=== PATIENT | female | born 1940 | race Caucasian/White ===

== ENCOUNTER 2023-11-26 04:03 | Emergency (ER) | payer MEDICARE, SELFPAY ==
[2023-11-26 04:07] VITALS: BP 205/95
[2023-11-26 04:14] VITALS: BP 205/95
[2023-11-26 04:23] VITALS: BMI 29.3
[2023-11-26 04:26] LABS: Glucose - Point of Care 122 mg/dl (70-99)
[2023-11-26 04:48] LABS: % Basophils 0.4 % (0-2); % Eosinophils 3.4 % (0-6); % Immature Granulocytes 0.5 % (0-0.5); % Lymphocytes 18.1 % (20.5-51.1); % Neutrophils 67.6 % (42.2-75.2); Absolute Basophils 0.1 10^3/uL (0-0.2); Absolute Eosinophils 0.4 10^3/uL (0-0.7); Absolute Immature Granulocytes 0.1 10^3/uL (0-0.05); Absolute Lymphocytes 2.1 10^3/uL (1.2-3.4); Absolute Monocytes 1.2 10^3/uL (0.1-0.6); Absolute Neutrophils 7.9 10^3/uL (1.4-6.5); Hematocrit 37.3 % (37.0-47.0); Hemoglobin 13.8 g/dL (12.0-16.0); Mean Corpuscular Hgb 33.5 pg (27.0-31.0); Mean Corpuscular Volume 90.5 fL (81.0-99.0); Mean Platelet Volume 12.1 fL (7.4-10.4); Nucleated Red Blood Cells % 0 %; Platelet Count 218 10^3/uL (130-400); Red Blood Cell Count 4.12 10^6/uL (4.20-5.40); Red Cell Dist. Width 12.9 % (11.5-14.5); White Blood Cell Count 11.6 10^3/uL (4.8-10.8)
[2023-11-26 05:10] LABS: ALT (SGPT) 24 U/L (0-35); AST (SGOT) 42 U/L (14-36); Albumin 3.8 g/dl (3.5-5.0); Alkaline Phosphatase 111 U/L (38-126); Blood Urea Nitrogen 8 mg/dl (7-17); Calcium 9.5 mg/dl (8.4-10.2); Carbon Dioxide 26 mmol/L (22-30); Chloride 100 mmol/L (98-107); Estimated Creatinine Clearance 73 ml/min; Glucose 126 mg/dl (70-99); Sodium 138 mmol/L (135-145); Total Protein 6.7 g/dl (6.3-8.2); eGFR > 60.00
[2023-11-26 05:13] LABS: NT-proBNP 683 pg/ml; Troponin I < 0.012 ng/ml
[2023-11-26 05:20] LABS: Creatine Phosphokinase 75 U/L (30-135)
[2023-11-26 06:00] VITALS: BP 203/74
--- NOTE | 2023-11-26 06:18 | ED.GENMED ---
History of Present Illness
General
Chief Complaint: Fall
Source: patient and spouse
Time Seen by Provider: 11/26/23 06:01
Travel History
Have you had any contact with someone who has COVID-19?: No
Do you have any symptoms of coronavirus? Fever > 100 degrees, chills, cough, shortness of breath, sore throat, loss of taste or smell, muscle aches, or headache?: No
History of Present Illness
History of Present Illness:
83-year-old female presents to the emergency room for evaluation after suffering a fall. Patient evidently fell at about 1:30 AM. Patient's did hear her fall but assumed she would get herself up. This morning when he awoke he found her on
the ground. Patient complaining of abdominal pain and right thorax pain. She does not have any shortness of breath. Patient endorses drinking about 8 ounces of liquor a day. She is on Eliquis.
Past History
Past History
ED Past Medical History: Arrthythmia, HTN, Hypercholesterolemia and Psychiatric (depression)
ED Past Surgical History: Cholecystectomy, Gynecological (hyster) and Other
Social History
Tobacco: Smoker
Alcohol: Daily
Drug: None
Personal:
Living: with family
Employment: Retired
Family History
Family History: Other
Phy Exam
Physical Exam
Physical Exam:
General: Awake, Alert, Oriented X3. Uncomfortable
Vitals: Hypertensive
Head: Atraumatic
Eyes: Pupils equal, EOMI
Throat: Airway intact, no exudates
Neck: Trachea midline
Chest: Significant tenderness palpation along the right lateral thorax from around the region of the fifth rib down to the 10th rib. No crepitance
Lungs: Clear and equal b/l
Heart: Regular rate, no murmurs
Abd: Soft, significant tenderness palpation bilateral upper abdominal quadrants, no pulsatile mass
Neuro: Nonfocal
Skin: Warm, dry, no rash
Extremities: pulses equal b/l, no edema
Course
Orders/Labs/Results
Orders:
Orders
11/26/23 04:31
Electrocardiogram (*1) Urgent
Reason for Study: Other
Other Reason for Exam: Respiratory Distress
Cardiac Monitoring- Treatment ONCE
EKG- Treatment ONCE
IV Insert/Care/Rem.- Treatment PRN
O2 Therapy [RESP] Urgent
Titrate/Wean O2 to maintain O2 sat greater than (%): 93
Special Instructions: TO MAINTAIN CONTINUOUS O2 SATS >/= 93%
Pulse Ox/cont/shift [RESP] Urgent
Quantity: 1
Special Instructions: continuous pulse ox
11/26/23 04:35
Complete Blood Count/With Diff Urgent
Comprehensive Metabolic Panel Urgent
Creatine Phosphokinase Urgent
Comment: ADD ON
NT-proBNP Urgent
Troponin I Urgent
11/26/23 04:53
Add On- LAB Urgent
Tests Added?: CPK
11/26/23 06:11
Urinalysis Urgent
Date Specimen was Collected: 11/26/23
Time Specimen was Collected: 05:26
Urine Microscopic Urgent
Date Specimen was Collected: 11/26/23
Time Specimen was Collected: 05:26
11/26/23 06:15
CT Chest/abd/pel W Iv Cont Urgent
Comment:
Reason For Exam: fall, right thorax and upper abd pain
CT Head W/o Iv Contrast Urgent
Comment:
Reason For Exam: fall, head injury
HYDROmorphone [Dilaudid] 0.5 mg IV NOW STA
11/26/23 06:16
CT Cervical Spine W/o Iv Contr Urgent
Comment:
Reason For Exam: neck pain s/p fall
11/26/23 11:17
Acetaminophen 1000MG/100Ml [Ofirmev] 1,000 mg in 100 ml IV ONCE
Acetaminophen IV Indication:: ED Narcotic History-ONCE
Abnormal Lab Results
11/26/23 11/26/23 11/26/23
04: 04:35 06:11
WBC 11.6 H 10^3/uL
(4.8-10.8)
RBC 4.12 L 10^6/uL
(4.20-5.40)
MCH 33.5 H pg
(27.0-31.0)
MPV 12.1 H fL
(7.4-10.4)
Abs Immat Gran (auto) 0.1 H 10^3/uL
(0-0.05)
Absolute Neuts (auto) 7.9 H 10^3/uL
(1.4-6.5)
Absolute Monos (auto) 1.2 H 10^3/uL
(0.1-0.6)
Lymphocytes % 18.1 L %
(20.5-51.1)
Monocytes % 10.0 H %
(1.7-9.3)
Creatinine 0.5 L mg/dL
(0.6-1.0)
Glucose 126 H mg/dl
(70-99)
AST 42 H U/L
(14-36)
Urine Occult Blood 1+ A
(Negative)
Ur Leukocyte Esterase 2+ A
(Negative)
Urine Bacteria Few A
(Negative)
POC Glucose 122 H mg/dl
(70-99)
11/26/23 04:35
11/26/23 04:35
Vital Signs
Initial and Last Documented VS:
Initial Vital Signs
Temp Pulse Resp BP Pulse Ox
98.0 F 64 15 205/95 94
11/26/23 04:07 11/26/23 04:07 11/26/23 04:07 11/26/23 04:07 11/26/23 04:07
Last Documented Vital Signs
Temp Pulse Resp BP Pulse Ox
98.0 F 61 21 180/80 96
11/26/23 04:07 11/26/23 09:00 11/26/23 09:00 11/26/23 11:28 11/26/23 11:28
MDM/Problems Addressed
Differential Diagnosis Includes:
Fractures, pneumothorax, hemothorax, splenic injury, hepatic injury
MDM/Problems Addressed:
CT shows multiple rib fxs on the right. No intra-abdominal injury. CT head/neck --> No acute injury. Given number of rib fx's pt is not a candidate for admission here. Discussed transfer to a trauma center with pt and her . They are okay
with [facility]. pt accepted by Dr. Simmons.
Chronic conditions affecting care: Arrhythmia (a fib) and Other (etoh)
*Radiology
Radiology exam reviewed: radiology read reviewed
*Pulse Oximetry
Patient hypoxic: no
*EKG
Interpreted by ED Provider?: Yes
Interpretation: normal
Heart Rate: 62
Rate: normal
Rhythm: sinus
[place]: normal axis
Interval: normal interval
QRS Pattern: normal QRS
Ischemia: no ischemia
*Critical Care Note
Total Time (30-74mins, 75-104mins- exclusive of procedures): Not Applicable
Patient Management
Social determinants of health affecting care: Living situation and Substance abuse
ED Attending Note
-
Portions of this chart may have been created with voice recognition software.� Occasional wrong word or��sound alike� substitutions may have occurred due to the inherent limitations of voice recognition software.
Discharge Plan
Departure
Patient Disposition: Acute Care Hospital
Date of Disposition: 11/26/23
Time of Disposition: 09:31
Condition: Fair
Discharge Problem:
Multiple fractures of ribs, Fall
Prescriptions:
No Action
atorvastatin 10 MG tablet
10 mg PO DAILY
duloxetine 30 MG capsule,delayed release(DR/EC)
30 mg PO DAILY
Rx Instructions:
11/26/2023, take with 60 mg for a total of 90 mg.
metoprolol succinate 100 MG tablet extended release 24 hr
100 mg PO DAILY
cyanocobalamin (vitamin B-12) 1,000 MCG tablet
1,000 mcg PO DAILY
Eliquis 5 MG tablet
5 mg PO BID
acetaminophen [Tylenol Extra Strength] 500 mg Tablet
2,000 mg PO DAILYPRN PRN (Reason: mild pain)
valsartan 160 mg Tablet
160 mg PO BID
duloxetine 60 mg Capsule,Delayed Release(Dr/Ec)
60 mg PO DAILY
Rx Instructions:
11/26/2023, take with 30 mg for a total of 90 mg.
Referrals:
Lamont El MD [Family Provider] -
Hospital Transfer
Other hospital: [facility]
I certify that the patient requires transfer: Yes
Discussed case with accepting physician: Dr. Simmons
Reason for transfer: higher level of care
Interventions
Interventions:
*Risk Screen - Suicide Last Done: 11/26/23 04:07
*General Assessment Last Done: 11/26/23 04:07
*Neglect/Abuse Screening Last Done: 11/26/23 04:07
ED- Fall Risk Assessment Last Done: 11/26/23 04:07
*ED COVID-19 Vaccine History Last Done: 11/26/23 04:07
*Nursing Disposition Last Done: 11/26/23 11:28
ED-Musculoskeletal Assessment Last Done: 11/26/23 04:23
ED- Neurological Assessment Last Done: 11/26/23 04:23
ED-Skin Assessment Last Done: 11/26/23 04:23
Discharge Date and Time
Discharge Date/Time: 11/26/23 11:32
[2023-11-26 06:23] LABS: Urine Albumin Negative (Neg - Trace); Urine Bilirubin Negative (Negative); Urine Character Clear (Clear); Urine Color Yellow; Urine Glucose Negative (Negative); Urine Ketone Negative (Negative); Urine Leukocyte 2+ (Negative); Urine Nitrite Negative (Negative); Urine Occult Blood 1+ (Negative); Urine Urobilinogen Negative (Neg - 1+)
[2023-11-26] MEDS: DILAUDID 0.5 MG IV (06:23)
[2023-11-26 06:41] VITALS: BP 178/71
[2023-11-26 07:15] LABS: Urine Squamous Cell 16-20 /LPF (Few)
[2023-11-26 07:17] LABS: Urine Red Blood Cell 0-2 /HPF (0-2)
[2023-11-26 07:18] LABS: Urine Bacteria Few (Negative)
[2023-11-26 08:27] VITALS: BP 176/78
[2023-11-26] MEDS: OFIRMEV 100 IV (11:19)
[2023-11-26 11:28] VITALS: BP 180/80
== END 2023-11-26 11:32 | disposition short-term general hospital (02) ==
LOC: EMR 04:03
PROVIDERS: Emergency Medicine; EMERGENCY PHYSICIAN Emergency Medicine; FAMILY PHYSICIAN Internal Medicine Geriatric Medicine
DX: S22.41XA Multiple fractures of ribs, right side, initial encounter for closed fracture (principal); W19.XXXA Unspecified fall, initial encounter; I10 Essential (primary) hypertension; I48.91 Unspecified atrial fibrillation; F32.A Depression, unspecified; E78.00 Pure hypercholesterolemia, unspecified; F17.200 Nicotine dependence, unspecified, uncomplicated; Z90.49 Acquired absence of other specified parts of digestive tract; Z79.01 Long term (current) use of anticoagulants
CPT/HCPCS: 99285; 96374; 96375; 70450; 71260; 72125; 74177; 80053; 81003; 81015; 82550; 82962; 83880; 84484; 85025; 93005; Q9967

== ENCOUNTER → 2023-12-31 16:53 | Outpatient (REF) | payer MEDICARE, SELFPAY | LOC: PAVMRI 16:53 | PROVIDERS: ATTENDING PHYSICIAN Internal Medicine Geriatric Medicine | DX: R42 Dizziness and giddiness (principal); Z09 Encounter for follow-up examination after completed treatment for conditions other than malignant neoplasm; R41.0 Disorientation, unspecified; G45.9 Transient cerebral ischemic attack, unspecified; I48.0 Paroxysmal atrial fibrillation | CPT/HCPCS: 70551 ==

== ENCOUNTER → 2024-01-03 09:14 | Outpatient (REF) | payer MEDICARE, SELFPAY ==
[2024-01-03 10:20] LABS: % Basophils 0.6 % (0-2); % Eosinophils 5.5 % (0-6); % Immature Granulocytes 0.4 % (0-0.5); % Lymphocytes 19.7 % (20.5-51.1); % Monocytes 10.3 % (1.7-9.3); % Neutrophils 63.5 % (42.2-75.2); Absolute Basophils 0.1 10^3/uL (0-0.2); Absolute Eosinophils 0.5 10^3/uL (0-0.7); Absolute Lymphocytes 1.9 10^3/uL (1.2-3.4); Absolute Neutrophils 6.2 10^3/uL (1.4-6.5); Hemoglobin 13.3 g/dL (12.0-16.0); Mean Corp Hgb Conc. 35.9 g/dL (33.0-37.0); Mean Corpuscular Volume 94.6 fL (81.0-99.0); Mean Platelet Volume 11.3 fL (7.4-10.4); Nucleated Red Blood Cells % 0 %; Platelet Count 190 10^3/uL (130-400); Red Blood Cell Count 3.91 10^6/uL (4.20-5.40); Red Cell Dist. Width 12.6 % (11.5-14.5); White Blood Cell Count 9.8 10^3/uL (4.8-10.8)
[2024-01-03 10:29] LABS: Urine Albumin Trace (Neg - Trace); Urine Bilirubin 1+ (Negative); Urine Character Very Cloudy (Clear); Urine Color Yellow; Urine Glucose Negative (Negative); Urine Ketone Trace (Negative); Urine Leukocyte 2+ (Negative); Urine Nitrite Negative (Negative); Urine Occult Blood 4+ (Negative); Urine Urobilinogen 1+ (Neg - 1+)
[2024-01-03 11:05] LABS: Vitamin D, 25-OH*** 21.7 ng/mL (30-80)
[2024-01-03 11:26] LABS: Urine Amorphous Seen; Urine Mucus Moderate; Urine Squamous Cell >30 /LPF (Few)
[2024-01-03 11:29] LABS: ALT (SGPT) 14 U/L (0-35); AST (SGOT) 20 U/L (14-36); Albumin 3.9 g/dl (3.5-5.0); Alkaline Phosphatase 126 U/L (38-126); Blood Urea Nitrogen 7 mg/dl (7-17); Calcium 9.9 mg/dl (8.4-10.2); Carbon Dioxide 30 mmol/L (22-30); Chloride 99 mmol/L (98-107); Glucose 114 mg/dl (70-99); HDL Cholesterol 83 mg/dl; LDL Cholesterol, Calculated 45 mg/dl; Potassium 4.1 mmol/L (3.5-5.1); Sodium 137 mmol/L (135-145); Total Bilirubin 1.3 mg/dl (0.2-1.3); Total Cholesterol 156 mg/dl (50-199); Total Protein 6.6 g/dl (6.3-8.2); Triglyceride 141 mg/dl (10-149); Urine Red Blood Cell 26-30 /HPF (0-2); Very Low Density Lipoprotein 28 mg/dl (0-30); eGFR > 60.00
[2024-01-03 11:30] LABS: Urine Bacteria Many (Negative); Urine White Cell 50-60 /HPF (0-5)
[2024-01-03 11:55] LABS: Folate 5.6 ng/ml (2.76-20); Vitamin B12 739 pg/ml (239-931)
[2024-01-06 14:15] LABS: Lyme Antibody Screen, EIA Negative (Negative)
== END ==
LOC: REG 09:14
PROVIDERS: ATTENDING PHYSICIAN Internal Medicine Geriatric Medicine
DX: Z09 Encounter for follow-up examination after completed treatment for conditions other than malignant neoplasm (principal); R41.0 Disorientation, unspecified; G45.9 Transient cerebral ischemic attack, unspecified; I48.0 Paroxysmal atrial fibrillation; I10 Essential (primary) hypertension; E78.2 Mixed hyperlipidemia; D47.2 Monoclonal gammopathy; G62.9 Polyneuropathy, unspecified; Z99.89 Dependence on other enabling machines and devices; N39.41 Urge incontinence; Z91.81 History of falling; D47.09 Other mast cell neoplasms of uncertain behavior
CPT/HCPCS: 36415; 80053; 80061; 81003; 81015; 82306; 82607; 82746; 85025; 86618

== ENCOUNTER → 2024-05-13 14:46 | Outpatient (REF) | payer MEDICARE, SELFPAY | LOC: RAD 14:46 | PROVIDERS: ATTENDING PHYSICIAN Nurse Practitioner Family; FAMILY PHYSICIAN Internal Medicine Geriatric Medicine | DX: M54.50 Low back pain, unspecified (principal) | CPT/HCPCS: 72110 ==

== ENCOUNTER 2024-07-05 10:46 | Emergency (ER) | payer MEDICARE, SELFPAY ==
[2024-07-05 10:53] VITALS: BP 201/87
--- NOTE | 2024-07-05 11:21 | ED.GENMED ---
History of Present Illness
General
Chief Complaint: Musculo-Skeletal Complaint
Time Seen by Provider: 07/05/24 11:09
History of Present Illness
History of Present Illness:
83-year-old female presents to the emergency department after mechanical ground-level fall, states that she was walking with her walker, ran into a piece of furniture and lost her balance, falling onto an outstretched hand. Pain is to the right
wrist and hand. Denies a head strike.
Past History
Past History
ED Past Medical History: Arrthythmia, HTN, Hypercholesterolemia and Psychiatric (depression)
ED Past Surgical History: Cholecystectomy, Gynecological (hyster) and Other
Social History
Tobacco: Smoker
Alcohol: Daily
Drug: None
Personal:
Living: with family
Employment: Retired
Family History
Family History: Other
Review of Systems
Review of Systems
Allergies reviewed?: Yes
All Other Systems: ROS reviewed and negative except as documented in HPI and ROS
Phy Exam
Physical Exam
Physical Exam:
GEN: Well appearing, NAD, WDWN
HEENT: Normocephalic and atraumatic, oral mucosa moist, no scleral icterus
Cardiac: Regular rate
Lung: No respiratory distress, no tachypnea
MSK: Diffuse ecchymosis and swelling to the right distal forearm/wrist extending into the mid hand, neurovascularly intact distal to the injury
Skin: Good color, no pallor or jaundice, no rashes
Neuro: AO x3, moves all extremities freely
Psych: Calm, cooperative
Course
Orders/Labs/Results
Orders:
Orders
07/05/24 10:55
CR Hand - Right Min 3 Views Urgent
Comment:
Reason For Exam: pain, bruising
Wrist, Right 3 Views [CR Wrist - Right Min 3 Views] Urgent
Comment:
Reason For Exam: pain, bruising
07/05/24 11:21
Acetaminophen [Tylenol] 650 mg PO NOW STA
Oxycodone [Roxicodone] 5 mg PO NOW STA
Vital Signs
Initial and Last Documented VS:
Initial Vital Signs
Temp Pulse Resp BP Pulse Ox
97.6 F 59 20 201/87 95
07/05/24 10:53 07/05/24 10:53 07/05/24 10:53 07/05/24 10:53 07/05/24 10:53
Last Documented Vital Signs
Temp Pulse Resp BP Pulse Ox
97.6 F 59 20 201/87 95
07/05/24 10:53 07/05/24 10:53 07/05/24 10:53 07/05/24 10:53 07/05/24 10:53
MDM/Problems Addressed
MDM/Problems Addressed:
Patient placed in an Ortho-Glass sugar-tong splint, outpatient orthopedic follow-up advised. No indication for close reduction in the ER
*Critical Care Note
Total Time (30-74mins, 75-104mins- exclusive of procedures): Not Applicable
ED Attending Note
-
Portions of this chart may have been created with voice recognition software.� Occasional wrong word or��sound alike� substitutions may have occurred due to the inherent limitations of voice recognition software.
Discharge Plan
Departure
Patient Disposition: Home (Routine Discharge)
Date of Disposition: 07/05/24
Time of Disposition: 11:21
Patient with high blood pressure during this ER visit?: No
Discharge Problem:
Closed fracture of right distal radius
Instructions: Wrist Fracture (DC)
Prescriptions:
New
oxycodone 5 mg tablet
5 mg PO Q8H PRN (Reason: Pain) Qty: 10 0RF
No Action
atorvastatin 10 MG tablet
10 mg PO DAILY
duloxetine 30 MG capsule,delayed release(DR/EC)
30 mg PO DAILY
Rx Instructions:
11/26/2023, take with 60 mg for a total of 90 mg.
metoprolol succinate 100 MG tablet extended release 24 hr
100 mg PO DAILY
cyanocobalamin (vitamin B-12) 1,000 MCG tablet
1,000 mcg PO DAILY
Eliquis 5 MG tablet
5 mg PO BID
acetaminophen [Tylenol Extra Strength] 500 mg Tablet
2,000 mg PO DAILYPRN PRN (Reason: mild pain)
valsartan 160 mg Tablet
160 mg PO BID
duloxetine 60 mg Capsule,Delayed Release(Dr/Ec)
60 mg PO DAILY
Rx Instructions:
11/26/2023, take with 30 mg for a total of 90 mg.
Referrals:
Gume Reeder MD [Active] -
Interventions
Interventions:
*Risk Screen - Suicide Last Done: 07/05/24 11:36
*General Assessment Last Done: 07/05/24 11:36
*Neglect/Abuse Screening Last Done: 07/05/24 11:36
ED- Fall Risk Assessment Last Done: 07/05/24 11:36
*Nursing Disposition Last Done: 07/05/24 11:54
ED-Musculoskeletal Assessment Last Done: 07/05/24 11:36
Discharge Date and Time
Discharge Date/Time: 07/05/24 11:58
Print Language: MACANESE
[2024-07-05] MEDS: TYLENOL 650 MG PO (11:31)
[2024-07-05] MEDS: ROXICODONE 5 MG PO (11:31)
== END 2024-07-05 11:58 | disposition home or self-care (01) ==
LOC: EMR 10:46
PROVIDERS: EMERGENCY PHYSICIAN Student in an Organized Health Care Education/Training Program; FAMILY PHYSICIAN Internal Medicine Geriatric Medicine
DX: S52.501A Unspecified fracture of the lower end of right radius, initial encounter for closed fracture (principal); W18.39XA Other fall on same level, initial encounter; E78.00 Pure hypercholesterolemia, unspecified; I10 Essential (primary) hypertension; F17.200 Nicotine dependence, unspecified, uncomplicated
CPT/HCPCS: 29125; 99283; 73110; 73130

== ENCOUNTER → 2024-09-21 10:30 | Outpatient (REF) | payer MEDICARE, SELFPAY ==
[2024-09-21 11:58] LABS: % Basophils 0.8 % (0-2); % Eosinophils 11.5 % (0-6); % Immature Granulocytes 0.3 % (0-0.5); % Lymphocytes 30.2 % (20.5-51.1); % Monocytes 9.3 % (1.7-9.3); % Neutrophils 47.9 % (42.2-75.2); Absolute Basophils 0.1 10^3/uL (0-0.2); Absolute Eosinophils 0.9 10^3/uL (0-0.7); Absolute Lymphocytes 2.3 10^3/uL (1.2-3.4); Absolute Monocytes 0.7 10^3/uL (0.1-0.6); Absolute Neutrophils 3.7 10^3/uL (1.4-6.5); Hematocrit 40.4 % (37.0-47.0); Hemoglobin 13.8 g/dL (12.0-16.0); Mean Corp Hgb Conc. 34.2 g/dL (33.0-37.0); Mean Corpuscular Hgb 32.5 pg (27.0-31.0); Mean Corpuscular Volume 95.1 fL (81.0-99.0); Mean Platelet Volume 12.1 fL (7.4-10.4); Nucleated Red Blood Cells % 0 %; Platelet Count 187 10^3/uL (130-400); Red Blood Cell Count 4.25 10^6/uL (4.20-5.40); Red Cell Dist. Width 12.6 % (11.5-14.5); White Blood Cell Count 7.7 10^3/uL (4.8-10.8)
[2024-09-21 12:02] LABS: Urine Albumin Trace (Neg - Trace); Urine Bilirubin 1+ (Negative); Urine Character Slightly Cloudy (Clear); Urine Color Yellow; Urine Glucose Negative (Negative); Urine Ketone Negative (Negative); Urine Leukocyte 2+ (Negative); Urine Nitrite Negative (Negative); Urine Occult Blood 4+ (Negative); Urine Specific Gravity 1.025 (<1.030); Urine Urobilinogen 2+ (Neg - 1+)
[2024-09-21 12:28] LABS: ALT (SGPT) 19 U/L (0-35); AST (SGOT) 23 U/L (14-36); Albumin 4.3 g/dl (3.5-5.0); Alkaline Phosphatase 100 U/L (38-126); Blood Urea Nitrogen 13 mg/dl (7-17); Calcium 9.7 mg/dl (8.4-10.2); Carbon Dioxide 31 mmol/L (22-30); Chloride 101 mmol/L (98-107); Glucose 108 mg/dl (70-99); HDL Cholesterol 87 mg/dl; LDL Cholesterol, Calculated 68 mg/dl; Potassium 3.9 mmol/L (3.5-5.1); Sodium 142 mmol/L (135-145); Total Cholesterol 184 mg/dl (50-199); Triglyceride 149 mg/dl (10-149); Very Low Density Lipoprotein 29 mg/dl (0-30); eGFR > 60.00
[2024-09-21 12:38] LABS: Vitamin D, 25-OH*** 26.1 ng/mL (30-80)
[2024-09-21 12:58] LABS: Urine Squamous Cell >30 /LPF (Few)
[2024-09-21 13:00] LABS: Urine Amorphous Seen; Urine Calcium Oxalate Crystals Seen; Urine White Cell 16-20 /HPF (0-5)
[2024-09-21 13:01] LABS: Urine Bacteria Many (Negative)
== END ==
LOC: REG 10:30
PROVIDERS: ATTENDING PHYSICIAN Internal Medicine Geriatric Medicine
DX: E78.2 Mixed hyperlipidemia (principal); I10 Essential (primary) hypertension; I48.0 Paroxysmal atrial fibrillation; R41.0 Disorientation, unspecified; G45.9 Transient cerebral ischemic attack, unspecified; D47.2 Monoclonal gammopathy; G62.9 Polyneuropathy, unspecified
CPT/HCPCS: 36415; 80053; 80061; 81003; 81015; 82306; 85025

== ENCOUNTER 2024-09-30 20:17 | Observation (INO) | payer MEDICARE, SELFPAY ==
[2024-09-30 17:15] VITALS: BP 136/71
--- NOTE | 2024-09-30 17:25 | ED.CVA ---
ED Provider Triage
<Gomez Hernandez PA-C - Last Filed: 09/30/24 17:26>
-
Patient seen by provider in Triage?: Seen in Triage
84-year-old female on Eliquis for history of A-fib presents with difficulty finding words and trouble speaking starting about an hour prior to arrival. She denies headache chest pain or shortness of breath. She does have a history of a stroke in
the past. During triage she does have trouble finding words and is at times aphasic but no obvious unilateral deficit otherwise the face is she is ambulating with a walker.
Patient evaluated vital signs obtained at triage called a stroke alert secondary to the aphasia. Likely not a tPA candidate secondary to anticoagulated status. Notified emergency room attending
Patient received medical screening evaluation by healthcare provider through triage. She warrants further workup and treatment
History of Present Illness
<Gomez Hernandez PA-C - Last Filed: 09/30/24 17:26>
General
Chief Complaint: CVA/TIA Symptoms
Time Seen by Provider: 09/30/24 17:35
<Brent Rawls DO - Last Filed: 09/30/24 20:57>
General
Source: patient, spouse and family
Onset of Stroke Symptoms
Onset of symptoms known: Yes
Date of onset of symptoms: 09/30/24
Time of onset of symptoms: 16:30
History of Present Illness
History of Present Illness:
84-year-old female presents to the emergency room for evaluation of abnormal speech. Patient noted to have a onset of abnormal speech around 430. Prior to 430 patient was observed by her daughter at her baseline. Daughter went upstairs to perform
some task and a short time later came back down to find her mom sitting in a chair with difficulty speaking. She did not observe any focal upper extremity or lower extremity weakness. Patient did have a CVA in the past. Symptoms were aphasia.
Aphasia resolved. Patient does take Eliquis. She has been compliant with her Eliquis.
Past History
<Gomez Hernandez PA-C - Last Filed: 09/30/24 17:26>
Past History
ED Past Medical History: Arrthythmia, HTN, Hypercholesterolemia and Psychiatric (depression)
ED Past Surgical History: Cholecystectomy, Gynecological (hyster) and Other
Social History
Tobacco: Smoker
Alcohol: Daily
Drug: None
Personal:
Living: with family
Employment: Retired
Family History
Family History: Other
Phy Exam
<Brent Rawls DO - Last Filed: 09/30/24 20:57>
Physical Exam
Physical Exam:
General: Eyes closed but opens with voice. Does follow commands to a significant extent. Oriented to person and place.
Vitals: unremarkable
Head: Atraumatic
Eyes: Pupils equal, EOMI
Throat: Airway intact, no exudates
Neck: Trachea midline
Lungs: Clear and equal b/l
Heart: Regular rate, no murmurs
Abd: Soft, Nontender, No pulsatile mass
Neuro: Cranial nerves intact, slight leg drift on the left, cerebellum exam difficult to assess as the patient closes her eyes during the examination.
Skin: Warm, dry, no rash
Extremities: pulses equal b/l, no edema
Course
<Gomez Hernandez PA-C - Last Filed: 09/30/24 17:26>
Orders/Labs/Results
Orders:
Orders
09/30/24 17:22
CT HEAD STROKE ALERT W/o Cont Urgent
Comment:
Reason For Exam: aphasia
CT HEAD/NECK ANG STROKE ALERT Urgent
Comment:
Reason For Exam: aphasia
09/30/24 17:23
Electrocardiogram (*1) Urgent
Reason for Study: TIA/Stroke
EKG- Treatment ONCE
09/30/24 17:30
Complete Blood Count/With Diff Urgent
09/30/24 17:36
Urinalysis Reflex To Culture Urgent
09/30/24 17:40
Add On- LAB Urgent
Tests Added?: alcohol
09/30/24 18:38
Alcohol Urgent
Comprehensive Metabolic Panel Urgent
09/30/24 19:57
Admit/Transfer Patient As Directed
Co-Sign Provider:
Level of Care: Observation services
Assign to:: Telemetry
Physician / Group: cheryl
Diagnosis: cva
Reason for Telemetry: Arrhythmia
Date to Stop Telemetry: 10/03/24
Time to Stop Telemetry: 11:00
PRN Pain Medication Management As Directed
May give lesser potent ordered pain med per pt: Yes
preference::
Protocol:: Medication orders for pain may be administered in a
manner that supports deferring to patient preference
when the pt is:
- Requesting an ordered lesser potent pain medication.
Least to most potent pain medications are defined
as: acetaminophen < NSAID < tramadol < opioids
(morphine, oxycodone, hydromorphone).
- Requesting a lesser dose of the same medication IF
ORDERED.
- Requesting a less intrusive route of administration
if both routes are prescribed by the provider (PO <
IV).
09/30/24 19:58
Code Status As Directed
Resuscitation Status: Do not resuscitate
Reached after discussion with pt or family/Healthcare POA: Yes
DNR Bracelet Application ONCE
10/03/24 11:00
DC Protocol for Telemetry ONCE
Abnormal Lab Results
09/30/24 09/30/24 09/30/24
17:29 17:30 18:38
MCH 32.9 H pg
(27.0-31.0)
MPV 12.1 H fL
(7.4-10.4)
Absolute Monos (auto) 0.9 H 10^3/uL
(0.1-0.6)
Monocytes % 10.2 H %
(1.7-9.3)
Eosinophils % 6.9 H %
(0-6)
Carbon Dioxide 32 H mmol/L
(22-30)
Total Protein 6.1 L g/dl
(6.3-8.2)
POC Glucose 137 H mg/dl
(70-99)
09/30/24 17:30
09/30/24 18:38
Vital Signs
Initial and Last Documented VS:
Initial Vital Signs
Temp Pulse Resp BP Pulse Ox
97.8 F 67 16 136/71 95
09/30/24 17:15 09/30/24 17:15 09/30/24 17:15 09/30/24 17:15 09/30/24 17:15
Last Documented Vital Signs
Temp Pulse Resp BP Pulse Ox
97.8 F 63 16 138/58 87
09/30/24 17:15 09/30/24 20:00 09/30/24 17:15 09/30/24 19:00 09/30/24 18:45
Yaslt;Brent Rawls DO - Last Filed: 09/30/24 20:57>
Orders/Labs/Results
Orders:
Orders
09/30/24 17:22
CT HEAD STROKE ALERT W/o Cont Urgent
Comment:
Reason For Exam: aphasia
CT HEAD/NECK ANG STROKE ALERT Urgent
Comment:
Reason For Exam: aphasia
09/30/24 17:23
Electrocardiogram (*1) Urgent
Reason for Study: TIA/Stroke
EKG- Treatment ONCE
09/30/24 17:30
Complete Blood Count/With Diff Urgent
09/30/24 17:36
Urinalysis Reflex To Culture Urgent
09/30/24 17:40
Add On- LAB Urgent
Tests Added?: alcohol
09/30/24 18:38
Alcohol Urgent
Comprehensive Metabolic Panel Urgent
09/30/24 19:57
Admit/Transfer Patient As Directed
Co-Sign Provider:
Level of Care: Observation services
Assign to:: Telemetry
Physician / Group: cheryl
Diagnosis: cva
Reason for Telemetry: Arrhythmia
Date to Stop Telemetry: 10/03/24
Time to Stop Telemetry: 11:00
PRN Pain Medication Management As Directed
May give lesser potent ordered pain med per pt: Yes
preference::
Protocol:: Medication orders for pain may be administered in a
manner that supports deferring to patient preference
when the pt is:
- Requesting an ordered lesser potent pain medication.
Least to most potent pain medications are defined
as: acetaminophen < NSAID < tramadol < opioids
(morphine, oxycodone, hydromorphone).
- Requesting a lesser dose of the same medication IF
ORDERED.
- Requesting a less intrusive route of administration
if both routes are prescribed by the provider (PO <
IV).
09/30/24 19:58
Code Status As Directed
Resuscitation Status: Do not resuscitate
Reached after discussion with pt or family/Healthcare POA: Yes
DNR Bracelet Application ONCE
10/03/24 11:00
DC Protocol for Telemetry ONCE
Abnormal Lab Results
09/30/24 09/30/24 09/30/24
17:29 17:30 18:38
MCH 32.9 H pg
(27.0-31.0)
MPV 12.1 H fL
(7.4-10.4)
Absolute Monos (auto) 0.9 H 10^3/uL
(0.1-0.6)
Monocytes % 10.2 H %
(1.7-9.3)
Eosinophils % 6.9 H %
(0-6)
Carbon Dioxide 32 H mmol/L
(22-30)
Total Protein 6.1 L g/dl
(6.3-8.2)
POC Glucose 137 H mg/dl
(70-99)
09/30/24 17:30
09/30/24 18:38
Vital Signs
Initial and Last Documented VS:
Initial Vital Signs
Temp Pulse Resp BP Pulse Ox
97.8 F 67 16 136/71 95
09/30/24 17:15 09/30/24 17:15 09/30/24 17:15 09/30/24 17:15 09/30/24 17:15
Last Documented Vital Signs
Temp Pulse Resp BP Pulse Ox
97.8 F 63 16 138/58 87
09/30/24 17:15 09/30/24 20:00 09/30/24 17:15 09/30/24 19:00 09/30/24 18:45
<DO Griffin Pearce Last Filed: 09/30/24 20:57>
MDM/Problems Addressed
Differential Diagnosis Includes:
Ischemic CVA, hemorrhagic CVA, electrolyte abnormality, urinary tract infection
MDM/Problems Addressed:
Patient presents with aphasia. Plain CT does not show any acute abnormality. CTA does not show any large vessel occlusion. Patient is not a candidate for thrombolysis as she takes Eliquis. This is a absolute contraindication. Patient will be
hospitalized for further neurologic evaluation and management. Discussed with neurology, Dr. Mendoza. No Plavix or aspirin at this time given the patient is currently taking Eliquis.
Chronic conditions affecting care: HTN and Neurological disorder (Previous CVA)
<Brent Rawls DO - Last Filed: 09/30/24 20:57>
*Radiology
Radiology exam reviewed: radiology read reviewed
*Pulse Oximetry
Patient hypoxic: no
*EKG
Interpreted by ED Provider?: Yes
Heart Rate: 61
Rate: normal
Rhythm: sinus
Interval: first degree heart block
QRS Pattern: normal QRS
Ischemia: non-specific ST changes
*Cooperer Interpretation
Rate: normal
Interpretation: abnormal
Rhythm: sinus
*Critical Care Note
Total Time (30-74mins, 75-104mins- exclusive of procedures): 40 min
comment:
Critical care statement: A total of 40 minutes of critical care time was provided for this patient. This includes management of unstable vital signs, evaluation of the patient at bedside, reviewing the patient's pertinent medical records, discussion
with consultants, review of old EKGs and review of pertinent medical records. This time with separate from time utilized to perform the aforementioned documented procedures
ED Attending Note
<Gomez Hernandez PA-C - Last Filed: 09/30/24 17:26>
-
Portions of this chart may have been created with voice recognition software.� Occasional wrong word or��sound alike� substitutions may have occurred due to the inherent limitations of voice recognition software.
Discharge Plan
Departure
Patient Disposition: Admit
Date of Disposition: 09/30/24
Time of Disposition: 19:29
Admit to: Telemetry
Presentation/result/management discussed w/ accepting MD/DO: Hospitalist
Condition: Fair
Discharge Problem:
Acute CVA (cerebrovascular accident)
Interventions
Interventions:
*Risk Screen - Suicide Last Done: 09/30/24 17:15
*General Assessment Last Done: 09/30/24 17:38
*Neglect/Abuse Screening Last Done: 09/30/24 17:38
ED- Fall Risk Assessment Last Done: 09/30/24 17:38
*ED COVID-19 Vaccine History Last Done: 09/30/24 17:38
ED- Pulmonary Assessment Last Done: 09/30/24 17:38
ED- Neurological Assessment Last Done: 09/30/24 20:14
ED- Cardiac Assessment Last Done: 09/30/24 17:38
ED Swallowing Screen Last Done: 09/30/24 19:58
[2024-09-30 17:31] LABS: Glucose - Point of Care 137 mg/dl (70-99)
[2024-09-30 17:47] LABS: % Basophils 0.8 % (0-2); % Eosinophils 6.9 % (0-6); % Immature Granulocytes 0.3 % (0-0.5); % Lymphocytes 30.1 % (20.5-51.1); % Monocytes 10.2 % (1.7-9.3); % Neutrophils 51.7 % (42.2-75.2); Absolute Basophils 0.1 10^3/uL (0-0.2); Absolute Eosinophils 0.6 10^3/uL (0-0.7); Absolute Lymphocytes 2.7 10^3/uL (1.2-3.4); Absolute Monocytes 0.9 10^3/uL (0.1-0.6); Absolute Neutrophils 4.7 10^3/uL (1.4-6.5); Hematocrit 43.7 % (37.0-47.0); Hemoglobin 15.3 g/dL (12.0-16.0); Mean Corpuscular Hgb 32.9 pg (27.0-31.0); Mean Platelet Volume 12.1 fL (7.4-10.4); Nucleated Red Blood Cells % 0 %; Platelet Count 216 10^3/uL (130-400); Red Blood Cell Count 4.65 10^6/uL (4.20-5.40); Red Cell Dist. Width 12.5 % (11.5-14.5); White Blood Cell Count 9.1 10^3/uL (4.8-10.8)
[2024-09-30 17:53] VITALS: BP 142/54
[2024-09-30 18:00] VITALS: BP 117/57
[2024-09-30 19:00] VITALS: BP 138/58
[2024-09-30 19:03] LABS: ALT (SGPT) 14 U/L (0-35); AST (SGOT) 20 U/L (14-36); Albumin 3.6 g/dl (3.5-5.0); Alkaline Phosphatase 82 U/L (38-126); Blood Urea Nitrogen 16 mg/dl (7-17); Calcium 9.3 mg/dl (8.4-10.2); Carbon Dioxide 32 mmol/L (22-30); Chloride 101 mmol/L (98-107); Glucose 91 mg/dl (70-99); Sodium 139 mmol/L (135-145); Total Bilirubin 0.9 mg/dl (0.2-1.3); Total Protein 6.1 g/dl (6.3-8.2); eGFR > 60.00
[2024-09-30 19:15] LABS: Alcohol None Detected
--- NOTE | 2024-09-30 20:01 | HPS.HSE ---
Family Physician
-
Family Physician: Laomnt El
Chief Complaint
-
difficulty
History of Present Illness
84-year-old female past medical history of paroxysmal atrial fibrillation status post ablation on Eliquis, prior incidentally discovered CVA, LVH, hypertension, hypercholesteremia, depression, presenting with difficulty finding words and difficulty
speaking starting an hour prior to arrival. Denies headache, new blurry vision, numbness or tingling, focal weakness, vertigo or dizziness, or chest pain or shortness of breath.
Patient was in an accident in November had MRI brain at that time which incidentally showed right lentiform nucleus stroke. No neurological symptoms at that time.
Blood pressure has been controlled.
She drinks 2 beers every day. She is a former smoker.
Her father had cerebral aneurysm. Her mother had heart attack and CVA.
Medical History
Past Medical History
Past Medical History: Reports Other (paroxysmal atrial fibrillation status post ablation on Eliquis, prior incidentally discovered CVA, LVH, hypertension, hypercholesteremia, depression)
Past Surgical History: Reports Other (Appendectomy, tonsillectomy, adenoidectomy, hernia repair, cholecystectomy)
Social History
Tobacco: Non-smoker
Alcohol: Daily
Drug: None
Family History
Family History: Other (Her father had cerebral aneurysm. Her mother had heart attack and CVA.)
Allergies / Home Medications
Allergies reflects when Allergies were last updated in Context app.
Home Medications with original date entered in Context app
Allergy/Medication List:
Allergies
Allergy/AdvReac Type Severity Reaction Status Date / Time
No Known Allergies Allergy Verified 09/30/24 17:21
Home Medications
atorvastatin 10 mg tablet 10 mg PO DAILY High cholesterol 01/20/19
apixaban 5 mg tablet (Eliquis) 5 mg PO BID Blood clot prevention/tx 01/29/22
cyanocobalamin (vitamin B-12) 1,000 mcg tablet 1,000 mcg PO DAILY Supplement 01/29/22
metoprolol succinate 100 mg tablet,extended release 24 hr 100 mg PO DAILY Heart disease/condition 01/29/22
duloxetine 60 mg capsule,delayed release 60 mg PO DAILY 11/26/23
valsartan 160 mg tablet 160 mg PO BID 11/26/23
Review of Systems
-
History Source: Patient
A 12 point ROS was completed and negative except as noted: Yes
Constitutional: Reports No Symptoms
EENT: Reports No Symptoms
Respiratory: Reports No Symptoms
Cardiac: Reports No Symptoms
Abdomen/GI: Reports No Symptoms
: Reports No Symptoms
Musculoskeletal: Reports No Symptoms
Skin: Reports No Symptoms
Neurological: Reports See HPI
Endocrine: Reports No Symptoms
Hematologic/Lymphatic: Reports No Symptoms
Psych: Reports No Symptoms
Physical Exam
Vital Signs
Vital Signs
Temp Pulse Resp BP Pulse Ox
97.8 F 61 16 117/57 87
09/30/24 17:15 09/30/24 18:45 09/30/24 17:15 09/30/24 18:00 09/30/24 18:45
Physical Exam
General: Well Developed, Well Nourished and No Apparent Distress
HEENT: NormoCephalic, Moist mucous membranes and Atraumatic
Respiratory: Clear
Cardiac: S1/S2 and Regular Rhythm; No Murmur or Rub
GI: Soft, Non Tender, Non Distended and Normal Bowel Sounds; No Organomegaly
Rectal: Deferred by Provider
Musculoskeletal: No Clubbing, No Cyanosis and No Edema
Skin: No Rash
Neuro: Nonfocal/grossly intact and Other (dysarthria )
Laboratory Results
-
09/30/24 17:30
09/30/24 18:38
Laboratory Results
Total Bilirubin 0.9 mg/dl (0.2-1.3) 09/30/24 18:38
AST 20 U/L (14-36) 09/30/24 18:38
ALT 14 U/L (0-35) 09/30/24 18:38
Alkaline Phosphatase 82 U/L (38-126) 09/30/24 18:38
Data Reviewed
-
Lab Data: Labs Reviewed by me
Old Records: Reviewed
Impression/Plan
-
IMPRESSION:
PLAN:
# TIA/CVA
-Only symptom is expressive aphasia/dysarthria which is significantly but not completely improved
-Neurological examination unremarkable otherwise
-CT head shows no acute abnormality
-CTA head and neck with less than 50% proximal internal carotid artery stenosis
-Continue Eliquis
-Check A1c and lipid panel
-Not candidate for tPA since she is on Eliquis
-Speech and swallow evaluation
-Permissive hypertension, hold valsartan until tomorrow
-Neurology consulted
-Not candidate for tPA given that she takes Eliquis
Paroxysmal atrial fibrillation
-Continue metoprolol
Prior CVA
LVH
Essential hypertension
-Hold valsartan until tomorrow
Hypercholesterolemia
-Continue statin
Anxiety/depression
-Continue duloxetine
DNR/DNI
DVT prophylaxis�Eliquis
Regular diet
[2024-09-30 21:59] VITALS: BP 162/82; BMI 27.9
[2024-09-30] MEDS: ELIQUIS 5 MG PO (23:01)
[2024-09-30 23:12] LABS: Urine Albumin Trace (Neg - Trace); Urine Bilirubin 1+ (Negative); Urine Character Clear (Clear); Urine Color Yellow; Urine Glucose Negative (Negative); Urine Ketone Negative (Negative); Urine Leukocyte 1+ (Negative); Urine Nitrite Negative (Negative); Urine Occult Blood 4+ (Negative); Urine Specific Gravity 1.015 (<1.030); Urine Urobilinogen 2+ (Neg - 1+)
[2024-10-01] VITALS (7 sets, daily range): BP systolic 123–189; BP diastolic 63–82; PULSE 51–54; BMI 27.9
--- NOTE | 2024-10-01 00:13 | PTCARENOTE ---
Received pt from ED via stretcher. Pt was able to stand and walk to bed with walker from home. AAOX3. Pt with no pain on admission. Assessed and oriented to room. Spouse at bedside. Pt verbalized understanding of call ha and call ha within reach
[2024-10-01 01:04] LABS: Urine Amorphous Seen; Urine Squamous Cell >30 /LPF (Few)
[2024-10-01 01:05] LABS: Urine Bacteria Many (Negative); Urine Red Blood Cell >100 /HPF (0-2); Urine Urothelial Cell >30 /LPF (FEW)
--- NOTE | 2024-10-01 01:22 | PTCARENOTE ---
SCD's ordered pt refused, pt educated on the use of SCDs but refused
[2024-10-01 06:12] LABS: % Basophils 0.8 % (0-2); % Immature Granulocytes 0.4 % (0-0.5); % Lymphocytes 34.1 % (20.5-51.1); % Monocytes 10.4 % (1.7-9.3); % Neutrophils 48.3 % (42.2-75.2); Absolute Basophils 0.1 10^3/uL (0-0.2); Absolute Eosinophils 0.6 10^3/uL (0-0.7); Absolute Lymphocytes 3.2 10^3/uL (1.2-3.4); Absolute Neutrophils 4.5 10^3/uL (1.4-6.5); Hematocrit 36.7 % (37.0-47.0); Hemoglobin 12.7 g/dL (12.0-16.0); Mean Corp Hgb Conc. 34.6 g/dL (33.0-37.0); Mean Corpuscular Hgb 32.5 pg (27.0-31.0); Mean Corpuscular Volume 93.9 fL (81.0-99.0); Mean Platelet Volume 11.2 fL (7.4-10.4); Nucleated Red Blood Cells % 0 %; Platelet Count 182 10^3/uL (130-400); Red Blood Cell Count 3.91 10^6/uL (4.20-5.40); Red Cell Dist. Width 12.7 % (11.5-14.5); White Blood Cell Count 9.4 10^3/uL (4.8-10.8)
[2024-10-01 06:36] LABS: Blood Urea Nitrogen 15 mg/dl (7-17); Calcium 9.3 mg/dl (8.4-10.2); Carbon Dioxide 31 mmol/L (22-30); Chloride 101 mmol/L (98-107); Estimated Creatinine Clearance 52 ml/min; Glucose 100 mg/dl (70-99); HDL Cholesterol 74 mg/dl; LDL Cholesterol, Calculated 65 mg/dl; Potassium 4.3 mmol/L (3.5-5.1); Sodium 140 mmol/L (135-145); Total Cholesterol 160 mg/dl (50-199); Triglyceride 107 mg/dl (10-149); Very Low Density Lipoprotein 21 mg/dl (0-30); eGFR > 60.00
--- NOTE | 2024-10-01 08:28 | CON.NEURO4 ---
Addendum entered and electronically signed by Ramirez Husain MD 10/01/24 11:37:
Studies reviewed.
I have personally examined the patient. I reviewed and agree with the PAVING MACHINE OPERATOR's Note.
My addenda:
Awake, alert, interactive. No acute distress.
Speech intact. Minimal difficulty with phrase repetition. Names 2 out of 3 objects
No tremor.
Extra-ocular movements grossly intact.
Facial movements full and symmetric. Hearing intact to normal conversational volume.
Normal UE movements bilaterally.
Neck: full ROM.
Chest: no dyspnea
Heart: no JVD
Ext: (-) Clubbing, (-) Cyanosis, (-) Edema
IMPRESSIONS/RECOMMENDATIONS:
Abrupt onset of aphasia, repetitive from 2021
Differential diagnosis includes TIA as well as Logopenic variant primary progressive aphasia. Additionally, metabolic disturbances may also be producing the patient's symptomatology
Patient was not a candidate for either tenecteplase or intra-arterial thrombectomy due to NIH stroke scale less than 6
Would not alter the patient's usual apixaban at this time, as patient is unlikely to of experienced an acute ischemic stroke size of the stroke would also preclude the need for discontinuance of anticoagulation at this time
Check blood work for potential metabolic causes
Due to the patient's recurrent episodes of falling, check orthostatic blood pressures with 3-minute increments between each body position change
Provide patient with thiamine
Eventual outpatient neuropsychological testing
Provide patient with vitamin D
Rehabilitation evaluations
We will follow MRI of brain results
D/W patient / family / nursing
All questions answered.
Will continue to follow pending result.
Original Note:
Consultation - Neurology 4
-
CONSULTING PHYSICIAN: Dr. Husain
REFERRING PHYSICIAN: Dr. Evelyn Tristan
DICTATED BY: SHARON Perez
DATE/TIME OF REQUEST: 09/30/2024
DATE/TIME OF CONSULTATION: 10/01/2024
Reason for Consultation: TIA symptoms
History of Present Illness:
This is an 84-year-old female patient with past medical history of atrial fibrillation on apixaban, hypertension, hyperlipidemia, neuropathy, frequent falls, daily ETOH use and depression who presented to the hospital on 09/30/2025 after an episode
of garbled speech. She reported symptoms started about 3:15 PM. She was trying to speak and reported a gentle neck word salad. The correct words were not coming out. Episode lasted about 15 to 20 minutes. Patient reports by the time she was on
her way to the hospital symptoms had already almost completely resolved. She had no headache. No vision trouble. No dizziness. No weakness numbness or tingling. No trouble with coordination. She does admit that she ambulates with a walker she
has some difficulty with balance at baseline. She does follow-up with physical therapy as an outpatient.
She did report similar symptoms in 2021. There was an MRI of the brain at that time did not show any stroke. She had a repeat brain MRI in December 2023 for some memory loss ordered by her primary care doctor which suspected small subacute lacunar
infarct of the right lentiform nucleus measuring 3 mm.
She has had multiple falls requiring ER evaluation and admissions to the hospital over the past 1+ years. Falls were thought to be secondary to neuropathy. She continues to drink at least 2 glasses of wine a night.
She has continued on Eliquis and denies any missed doses. She does admit to some chronic memory loss. Currently she feels she is at baseline and offers no complaints.
Past Medical History: atrial fibrillation s/p ablation on Apixaban, stroke, LVH, HTN, HLD, depression, TIA, PN, frequent falls, rib fractures and neuropathy
Surgical History: Appendectomy, Tonsillectomy, hernia repair, Cholecystectomy
Family History: Reviewed and noncontributory
Social History: Non-smoker, daily use of ETOH
Allergies: NKDA
Home Medications: see below
Review of Symptoms:
Patient denies any fever, headache, chest pain, shortness of breath, GI or symptoms.
�
Vital Signs: see below
Physical Exam:
The patient is afebrile, no acute distress, no dyspnea or SOB
Neurologic Examination:
The patient is awake, alert and oriented x 3. She is able to follow commands and answer questions appropriately. There is no aphasia or dysarthria. On cranial nerve assessment, pupils are 3 mm bilateral, round and reactive to light and
accommodation. Visual plata are full. Extraocular movements are intact. Facial sensations are intact and bilaterally symmetrical, there is no facial asymmetry. Hearing is intact bilaterally to normal conversation volume. Tongue palate and uvula are
midline. Sternocleidomastoid strengths are full bilaterally. Motor strengths are 5/5 bilateral upper and lower extremities on medical research [place] scale. There is no drift or involuntary movement noted. Deep tendon reflexes are 1+ bilateral
upper and lower extremities and Babinski is absent bilaterally. Sensations of light touch and temperature are reduced distally. There was no extinction noted on double simultaneous stimulation. Coordination is intact by finger to nose bilaterally.
Romberg (-), able to stand independently.
Lab Results: see below
Neuro Imaging:
CT head-
No acute intracranial pathology.
Mild atrophy. Stable
Moderate periventricular small vessel seen disease. Stable
Moderate nonacute sinusitis. Mildly improved.
CTA head/Neck
No acute pathology identified.
Mild atherosclerotic disease. Bilateral less than 50% proximal internal carotid artery stenosis
Impression:
DANE JAY is a 84 year old F who has presented to the hospital with transient speech changes likely secondary to TIA vs less likely acute stroke, reports on going memory deficits and neuropathy.
Recommendations:
-MRI brain
-does not need additional vessel imaging had CTA head and neck
-continue Eliquis
-Continue Atorvastatin 10 mg, LDL goal less than 70, LDL 65
-goal normoglycemia
-goal normotension
-PT/OT and speech evaluations
-stroke education
-will check labs for metabolic causes
-would benefit from outpatient neuropsychological testing
-may benefit from outpatient work up for neuropathy
-DVT prophylaxis covered by Eliquis
-rest of medical management per primary care team
Discussed patient care with patient and neurologist Dr. Husain
Medication and Allergies
Home Medications
Home Medications
�Medication �Instructions �Recorded
atorvastatin 10 mg tablet 10 mg PO DAILY High cholesterol 01/20/19
apixaban 5 mg tablet (Eliquis) 5 mg PO BID Blood clot 01/29/22
prevention/tx
cyanocobalamin (vitamin B-12) 1,000 mcg PO DAILY Supplement 01/29/22
1,000 mcg tablet
metoprolol succinate 100 mg 100 mg PO DAILY Heart 01/29/22
tablet,extended release 24 hr disease/condition
duloxetine 60 mg capsule,delayed 60 mg PO DAILY Mental 11/26/23
release Health/Anxiety
valsartan 160 mg tablet 160 mg PO BID Heart 11/26/23
Disease/Condition
Allergies
Allergies
Allergy/AdvReac Type Severity Reaction Status Date / Time
No Known Allergies Allergy Verified 09/30/24 17:21
Vital Signs / Labs
-
Vital Signs and Labs:
Temp Pulse Resp BP Pulse Ox
97.3 F 55 16 134/80 96
10/01/24 10:45 10/01/24 11:18 10/01/24 10:45 10/01/24 11:18 10/01/24 10:45
10/01/24 05:32
10/01/24 05:32
09/30/24 09/30/24 09/30/24
17:29 17:30 18:38
RBC
Hct
MCH 32.9 H
MPV 12.1 H
Absolute Monos (auto) 0.9 H
Monocytes % 10.2 H
Eosinophils % 6.9 H
Carbon Dioxide 32 H
Glucose
Total Protein 6.1 L
Ur Occult Blood Reflex
Urine Bilirubin
Urine Urobilinogen
Leukocyte Esterase Rfl
Urine RBC
Urine Bacteria (Reflex)
POC Glucose 137 H
09/30/24 10/01/24
23:08 05:32
RBC 3.91 L
Hct 36.7 L
MCH 32.5 H
MPV 11.2 H
Absolute Monos (auto) 1.0 H
Monocytes % 10.4 H
Eosinophils %
Carbon Dioxide 31 H
Glucose 100 H
Total Protein
Ur Occult Blood Reflex 4+ A
Urine Bilirubin 1+ A
Urine Urobilinogen 2+ A
Leukocyte Esterase Rfl 1+ A
Urine RBC >100 A
Urine Bacteria (Reflex) Many A
POC Glucose
[2024-10-01] MEDS: CYMBALTA DELAYED RELEASE 60 MG PO (08:33)
[2024-10-01] MEDS: LIPITOR 10 MG PO (08:33)
[2024-10-01] MEDS: VITAMIN B-12 1000 MCG PO (08:33)
[2024-10-01] MEDS: ELIQUIS 5 MG PO ×2 (08:33→19:53)
[2024-10-01] MEDS: TOPROL XL 100 MG PO (08:33)
[2024-10-01 08:38] LABS: Glycohemoglobin (HgbA1c) 4.8 % (4.0-5.6)
--- NOTE | 2024-10-01 08:55 | VNURNOTE ---
Chart reviewed. Patient is current with [facility], OT. Will continue to follow hospital course and DC plans.
--- NOTE | 2024-10-01 08:58 | W.PN.HOSP.TC ---
Today's Communication/Plan
-
Brain MRI
Assessment / Plan
Assessment / Plan
Physical Exam
General: Well Developed, Well Nourished and No Apparent Distress
HEENT: NormoCephalic, Moist mucous membranes and Atraumatic
Respiratory: Clear
Cardiac: S1/S2 and Regular Rhythm; No Murmur or Rub
GI: Soft, Non Tender, Non Distended and Normal Bowel Sounds; No Organomegaly
Rectal: Deferred by Provider
Musculoskeletal: No Clubbing, No Cyanosis and No Edema
Skin: No Rash
Neuro: Nonfocal/grossly intact and Other (dysarthria )
A/P:
#Repetitive aphasia and probable metabolic encephalopathy
-Neurology consult appreciated and differential includes lopogenic variant primary progressive aphasia versus metabolic disturbances versus rule out stroke
-CT head shows no acute abnormality
-CTA head and neck with less than 50% proximal internal carotid artery stenosis
-Continue Eliquis (okay by neurology)
-Checking blood work for metabolic causes
-Started on thiamine and vitamin D
-PT OT eval
-Checking orthostatic
-MRI of the brain pending
Paroxysmal atrial fibrillation
-Continue metoprolol
-Continue anticoagulation
Prior CVA
LVH
Essential hypertension
-Appears to be controlled on current beta-abdon
-Hold valsartan to avoid hypotension and can resume once it starts to go up
Hypercholesterolemia
-Continue statin
Anxiety/depression
-Continue duloxetine
DNR/DNI
DVT prophylaxis�Eliquis
Total time spent on today's encounter was 52 minutes which included time spent in counseling the patient/family regarding diagnosis and treatment plan as listed above, goals of care, and symptom management. Case was discussed with nursing staff,
specialists, and care coordinators/case management. All labs and imaging personally reviewed by me. Remainder the time spent in detailed review of previous records, lab data, imaging, and other medical provider documentation.
Anticipated Discharge: 24 - 48 hours
Subjective/Interval History
-
Date of Service: October 01, 2024
Patient still having intermittent aphasia. No chest pain. Afebrile
Objective Data
-
Labs:
Laboratory Results
10/01/24
05:32
WBC 9.4
Hgb 12.7
Hct 36.7 L
Plt Count 182
Sodium 140
Potassium 4.3
Chloride 101
Carbon Dioxide 31 H
BUN 15
Creatinine 0.8
Glucose 100 H
Calcium 9.3
Vital Signs:
Vital Signs
Temp Pulse Resp BP Pulse Ox
98 F 51 16 156/66 98
10/01/24 07:00 10/01/24 08:33 10/01/24 07:00 10/01/24 08:33 10/01/24 07:00
--- NOTE | 2024-10-01 11:00 | PTOTSP ---
ACCOUNTING POLICY CONSULTANT Evaluations
Patient presents with signs concerning for mild dysphagia and possible aspiration x1 with consecutive drinking of liquids as a liquid wash with dry solids.
Quick Aphasia Battery Form 1 QAB overall = 9.53, no aphasia. Patient with an accent, reported motor speech at baseline at this time.
Recommend:
1. Regular, Thin Liquids
2. Medications: as best tolerated
3. Strategies: pick soft/moist foods, single sips/bites, liquid wash as needed to assist with oral transfers
4. Oral care 2x daily
5. Further cognitive linguistic screener as appropriate.
6. Dysphagia therapy follow up for instruction in swallowing precautions and to determine if further instrumental assessment warranted
[2024-10-01] MEDS: VITAMIN D3 (cholecalciferol) 125 MCG PO (12:51)
--- NOTE | 2024-10-01 13:39 | CM ---
Reviewed chart, met with patient, her spouse and daughter who were at bedside, to obtain information for assessment. Patient stated that she lives with her spouse in a three story home with two steps to enter. She described herself as independent
with bathing, dressing, personal care and all other ADLs. 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 She uses a walker to assist with her ambulation.
Patient is current with [facility].
She has been to [facility] in the past for SNF but stated that she is not willing to return to a rehab.
Patient has a prescription plan and uses, [facility] in [place] for all of her medications.
Her PCP is, Glenn El.
Patient expressed that she would like to return home when stable for discharge with resumption of care through [facility].
[facility] letter reviewed, signed and is on chart.
Plan: Case management will continue to follow and assist with discharge planning. Home with [facility].
[2024-10-01 13:54] LABS: Ferritin 73.4 ng/ml (11.1-264.0)
[2024-10-01 14:26] LABS: Folate 5.9 ng/ml (2.76-20); Vitamin B12 903 pg/ml (239-931)
[2024-10-01 17:32] LABS: TSH Reflex To Free T4 3.44 uIU/ml (0.47-4.68)
[2024-10-01] MEDS: APRESOLINE 5 MG IV (23:20)
--- NOTE | 2024-10-01 23:25 | PTCARENOTE ---
Pt had a SBP >180 IT SOLUTIONS ARCHITECT notified regarding the BP with a HR slighty nina in the upper 50s. IT SOLUTIONS ARCHITECT ordered x1 hydralazine. RN to recheck BP @ 0025.
[2024-10-02 00:29] VITALS: BP 112/65
[2024-10-02 03:33] VITALS: BP 132/50
[2024-10-02 07:33] LABS: Hemoglobin 13.3 g/dL (12.0-16.0); Mean Corpuscular Hgb 32.8 pg (27.0-31.0); Mean Corpuscular Volume 93.8 fL (81.0-99.0); Mean Platelet Volume 11.8 fL (7.4-10.4); Platelet Count 167 10^3/uL (130-400); Red Blood Cell Count 4.05 10^6/uL (4.20-5.40); Red Cell Dist. Width 12.4 % (11.5-14.5); White Blood Cell Count 7.8 10^3/uL (4.8-10.8)
[2024-10-02 07:37] VITALS: BP 149/67
[2024-10-02 07:53] LABS: Blood Urea Nitrogen 12 mg/dl (7-17); Calcium 9.7 mg/dl (8.4-10.2); Carbon Dioxide 30 mmol/L (22-30); Chloride 104 mmol/L (98-107); Estimated Creatinine Clearance 70 ml/min; Glucose 116 mg/dl (70-99); Potassium 4.4 mmol/L (3.5-5.1); Sodium 141 mmol/L (135-145); eGFR > 60.00
--- NOTE | 2024-10-02 09:06 | W.PN.HOSP.TC ---
Today's Communication/Plan
-
Discharge planning today
Assessment / Plan
Assessment / Plan
Physical Exam
General: Well Developed, Well Nourished and No Apparent Distress
HEENT: NormoCephalic, Moist mucous membranes and Atraumatic
Respiratory: Clear
Cardiac: S1/S2 and Regular Rhythm; No Murmur or Rub
GI: Soft, Non Tender, Non Distended and Normal Bowel Sounds; No Organomegaly
Rectal: Deferred by Provider
Musculoskeletal: No Clubbing, No Cyanosis and No Edema
Skin: No Rash
Neuro: Nonfocal/grossly intact and Other (dysarthria )
A/P:
#Repetitive aphasia and probable metabolic encephalopathy
-Neurology consult appreciated and differential includes lopogenic variant primary progressive aphasia versus metabolic disturbances versus rule out stroke
-CT head shows no acute abnormality
-CTA head and neck with less than 50% proximal internal carotid artery stenosis
-Continue Eliquis (okay by neurology)
-Checking blood work for metabolic causes
-Started on thiamine and vitamin D
-PT OT eval
-Checking orthostatic
-MRI of the brain no acute abnormalities
-Discussed with family at bedside today on 10/02
-Plan to discharge today and follow-up with neurology as outpatient
Paroxysmal atrial fibrillation
-Continue metoprolol
-Continue anticoagulation
Prior CVA
LVH
Essential hypertension
-Appears to be controlled on current beta-badon
-Resume valsartan today
Hypercholesterolemia
-Continue statin
Anxiety/depression
-Continue duloxetine
DNR/DNI
DVT prophylaxis�Eliquis
Anticipated Discharge: Today
Subjective/Interval History
-
Date of Service: October 02, 2024
Patient doing relatively better today.
Objective Data
-
Labs:
Laboratory Results
10/02/24
06:59
WBC 7.8
Hgb 13.3
Hct 38.0
Plt Count 167
Sodium 141
Potassium 4.4
Chloride 104
Carbon Dioxide 30
BUN 12
Creatinine 0.6
Glucose 116 H
Calcium 9.7
Vital Signs:
Vital Signs
Temp Pulse Resp BP Pulse Ox
98.2 F 53 17 149/67 96
10/02/24 07:37 10/02/24 07:37 10/02/24 07:37 10/02/24 07:37 10/02/24 07:37
I&O
10/01/24 10/02/24 10/03/24
06:59 06:59 06:59
Intake Total 400 / 400
Balance 400 / 400
[2024-10-02 09:42] VITALS: BP 120/75; PULSE 53; O2SAT 97
[2024-10-02] MEDS: LIPITOR 10 MG PO (10:03)
[2024-10-02] MEDS: CYMBALTA DELAYED RELEASE 60 MG PO (10:03)
[2024-10-02] MEDS: ELIQUIS 5 MG PO (10:03)
[2024-10-02] MEDS: TOPROL XL 100 MG PO (10:04)
[2024-10-02] MEDS: VITAMIN D3 (cholecalciferol) 125 MCG PO (10:04)
[2024-10-02] MEDS: VITAMIN B-12 1000 MCG PO (10:04)
--- NOTE | 2024-10-02 10:21 | W.PN.NEURO.1 ---
Today's Communication / Plan
-
Continue apixaban at this time
Provide patient with thiamine
outpatient neuropsychological testing
Provide patient with vitamin D
Neuro Assessment/Plan
Assessment
IMPRESSIONS/RECOMMENDATIONS:
Abrupt onset of aphasia, repetitive from 2021
Differential diagnosis includes TIA as well as Logopenic variant primary progressive aphasia. Not clearly due to metabolic disturbances
Orthostatic blood pressures are unclear with their results
Plan
Continue apixaban at this time
Provide patient with thiamine
outpatient neuropsychological testing
Provide patient with vitamin D
Will follow as needed.
Subjective/Objective
Subjective Data
Date of Service: October 02, 2024
Objective Data
Vital Signs
Temp Pulse Resp BP Pulse Ox
36.8 C 53 17 149/67 96
10/02/24 07:37 10/02/24 07:37 10/02/24 07:37 10/02/24 07:37 10/02/24 07:37
Lab Results
10/02/24 06:59
10/02/24 06:59
Sodium 141 mmol/L (135-145) 10/02/24 06:59
Potassium 4.4 mmol/L (3.5-5.1) 10/02/24 06:59
BUN 12 mg/dl (7-17) 10/02/24 06:59
Glucose 116 mg/dl (70-99) H 10/02/24 06:59
Calcium 9.7 mg/dl (8.4-10.2) 10/02/24 06:59
LDL Cholesterol, Calc 65 mg/dl 10/01/24 05:32
Vitamin B12 903 pg/ml (239-931) 10/01/24 05:32
Patient Allergies
No Known Allergies Allergy (Verified 09/30/24 17:21)
Data Reviewed
-
MRI Head: Report Reviewed
Labs: Report Reviewed
Old Records: Summarized
[2024-10-02 10:51] VITALS: BP 160/65
[2024-10-02] MEDS: DIOVAN 160 MG PO (11:03)
--- NOTE | 2024-10-02 11:49 | W.DCSUMMARY ---
Discharge Summary
Discharge Data
Date of Admission: 09/30/24
Date of Discharge: 10/02/24
-
Pending Results: No
Hospital Course
Patient 84 years old female history of A-fib on anticoagulation, hypertension, hyperlipidemia, neuropathy, frequent falls, came into the hospital with intermittent aphasia. Neurology was consulted. She had a full stroke workup including CTA of the
head and neck and also MRI of the brain and that did not reveal any signs of ischemia in the brain. Neurology recommended thiamine and vitamin D upon discharge. Otherwise she is hemodynamically stable and she is feels back to her baseline. She
can follow-up with PCP and neurology as outpatient.
Discharge Plan
-
Patient Disposition: Home with Home Care
Discharge Diagnosis/Procedures: Repetitive aphasia unclear etiology. Paroxysmal atrial fibrillation. Hypertension. Depression and anxiety.
Diet: Low Cholesterol
Activity: As tolerated
Blood Work: Please PCP to order CBC, BMP within 1 week
Referrals:
Ramirez Husain MD [Active] - in two to four weeks
Lamont El MD [Family Provider] - in less than 1 week
Prescriptions:
New
cholecalciferol (vitamin D3) [Vitamin D3] 25 mcg (1,000 unit) capsule
25 mcg PO DAILY Qty: 30 0RF
thiamine HCl (vitamin B1) 50 mg tablet
50 mg PO DAILY Qty: 30 0RF
Continued
atorvastatin 10 MG tablet
10 mg PO DAILY
metoprolol succinate 100 MG tablet extended release 24 hr
100 mg PO DAILY
cyanocobalamin (vitamin B-12) 1,000 MCG tablet
1,000 mcg PO DAILY
Eliquis 5 MG tablet
5 mg PO BID
valsartan 160 mg Tablet
160 mg PO BID
duloxetine 60 mg Capsule,Delayed Release(Dr/Ec)
60 mg PO DAILY
Discharge Orders:
Discharge Patient (As Directed); Ordered 10/02/24
Ordered By: Charles Tan
Discharge Date and Time
Discharge Date/Time: 10/02/24 12:39
Print Language: BELARUSIAN
== END 2024-10-02 12:39 | disposition home health service (06) ==
LOC: 3 WEST ACU 20:17
PROVIDERS: Physician Assistant; ADMITTING PHYSICIAN Hospitalist; ATTENDING PHYSICIAN Hospitalist; CONSULT PHYSICIAN Psychiatry & Neurology Neurology; EMERGENCY PHYSICIAN Emergency Medicine; FAMILY PHYSICIAN Internal Medicine Geriatric Medicine
DX: R47.01 Aphasia (principal); R53.1 Weakness; R41.3 Other amnesia; R29.6 Repeated falls; I10 Essential (primary) hypertension; E78.00 Pure hypercholesterolemia, unspecified; F17.200 Nicotine dependence, unspecified, uncomplicated; F41.9 Anxiety disorder, unspecified; F32.A Depression, unspecified; I48.0 Paroxysmal atrial fibrillation; F10.90 Alcohol use, unspecified, uncomplicated; I44.5 Left posterior fascicular block; Z66 Do not resuscitate; Z82.49 Family history of ischemic heart disease and other diseases of the circulatory system; Z82.3 Family history of stroke; Z86.73 Personal history of transient ischemic attack (TIA), and cerebral infarction without residual deficits; Z79.01 Long term (current) use of anticoagulants; Z90.49 Acquired absence of other specified parts of digestive tract
CPT/HCPCS: 70450; 70496; 70498; 70551; 80048; 80053; 80061; 81003; 81015; 82077; 82607; 82728; 82746; 82962; 83036; 84443; 85025; 85027; 87086; 92523; 92610; 93005; 97162; 99291; G0378; Q9967

== ENCOUNTER → 2024-10-08 14:31 | Outpatient (REF) | payer MEDICARE, SELFPAY ==
[2024-10-08 17:35] LABS: Urine Albumin Trace (Neg - Trace); Urine Bilirubin 1+ (Negative); Urine Character Slightly Cloudy (Clear); Urine Color Yellow; Urine Glucose Negative (Negative); Urine Ketone Trace (Negative); Urine Leukocyte 2+ (Negative); Urine Nitrite Negative (Negative); Urine Occult Blood 3+ (Negative); Urine Specific Gravity 1.025 (<1.030); Urine Urobilinogen 3+ (Neg - 1+)
[2024-10-08 18:02] LABS: Urine Squamous Cell >30 /LPF (Few)
[2024-10-08 18:03] LABS: Urine White Cell 16-20 /HPF (0-5)
[2024-10-08 18:04] LABS: Urine Bacteria Many (Negative)
== END ==
LOC: REG 14:31
PROVIDERS: ATTENDING PHYSICIAN Internal Medicine Geriatric Medicine
DX: R31.0 Gross hematuria (principal)
CPT/HCPCS: 81003; 81015; 87086

== ENCOUNTER → 2024-10-13 14:03 | Outpatient (REF) | payer MEDICARE, SELFPAY | LOC: HWRAD 14:03 | PROVIDERS: ATTENDING PHYSICIAN Internal Medicine Geriatric Medicine | DX: R31.0 Gross hematuria (principal) | CPT/HCPCS: 76770 ==

== ENCOUNTER → 2025-03-08 11:21 | Outpatient (REF) | payer MEDICARE, SELFPAY ==
[2025-03-08 13:32] LABS: % Basophils 0.8 % (0-2); % Eosinophils 7.6 % (0-6); % Immature Granulocytes 0.4 % (0-0.5); % Lymphocytes 29.2 % (20.5-51.1); % Monocytes 10.5 % (1.7-9.3); % Neutrophils 51.5 % (42.2-75.2); Absolute Basophils 0.1 10^3/uL (0-0.2); Absolute Eosinophils 0.6 10^3/uL (0-0.7); Absolute Lymphocytes 2.1 10^3/uL (1.2-3.4); Absolute Monocytes 0.8 10^3/uL (0.1-0.6); Absolute Neutrophils 3.8 10^3/uL (1.4-6.5); Hematocrit 41.9 % (37.0-47.0); Hemoglobin 14.8 g/dL (12.0-16.0); Mean Corp Hgb Conc. 35.3 g/dL (33.0-37.0); Mean Corpuscular Volume 93.3 fL (81.0-99.0); Mean Platelet Volume 10.9 fL (7.4-10.4); Nucleated Red Blood Cells % 0 %; Platelet Count 340 10^3/uL (130-400); Red Blood Cell Count 4.49 10^6/uL (4.20-5.40); Red Cell Dist. Width 12.7 % (11.5-14.5); White Blood Cell Count 7.3 10^3/uL (4.8-10.8)
[2025-03-08 14:03] LABS: NT-proBNP 2390 pg/ml
[2025-03-08 15:09] LABS: Glycohemoglobin (HgbA1c) 4.7 % (4.0-5.6)
[2025-03-08 15:10] LABS: ALT (SGPT) 17 U/L (0-35); AST (SGOT) 22 U/L (14-36); Albumin 4.6 g/dl (3.5-5.0); Alkaline Phosphatase 102 U/L (38-126); Blood Urea Nitrogen 14 mg/dl (7-17); Calcium 10.1 mg/dl (8.4-10.2); Carbon Dioxide 26 mmol/L (22-30); Chloride 108 mmol/L (98-107); Glucose 118 mg/dl (70-99); Potassium 4.1 mmol/L (3.5-5.1); Sodium 142 mmol/L (135-145); Total Bilirubin 1.2 mg/dl (0.2-1.3); Total Protein 7.2 g/dl (6.3-8.2); eGFR > 60.00
[2025-03-08 15:14] LABS: TSH Reflex To Free T4 3.72 uIU/ml (0.47-4.68)
[2025-03-08 15:26] LABS: Vitamin B12 916 pg/ml (239-931)
== END ==
LOC: REG 11:21
PROVIDERS: ATTENDING PHYSICIAN Nurse Practitioner Family; FAMILY PHYSICIAN Internal Medicine Geriatric Medicine
DX: F32.1 Major depressive disorder, single episode, moderate (principal); R53.83 Other fatigue; R53.81 Other malaise; E78.2 Mixed hyperlipidemia; I48.0 Paroxysmal atrial fibrillation; I10 Essential (primary) hypertension; G45.9 Transient cerebral ischemic attack, unspecified; G47.09 Other insomnia; R41.3 Other amnesia; E53.8 Deficiency of other specified B group vitamins; R73.01 Impaired fasting glucose
CPT/HCPCS: 36415; 80053; 82607; 83036; 83880; 84443; 85025

== ENCOUNTER → 2025-03-17 16:00 | Outpatient (REF) | payer MEDICARE, SELFPAY | LOC: RAD 16:00 | PROVIDERS: ATTENDING PHYSICIAN Nurse Practitioner Adult Health | DX: Z91.81 History of falling (principal); M54.50 Low back pain, unspecified | CPT/HCPCS: 72110 ==

== ENCOUNTER → 2025-04-01 15:42 | Outpatient (REF) | payer MEDICARE, SELFPAY | LOC: RCS 15:42 | PROVIDERS: ATTENDING PHYSICIAN Nurse Practitioner Adult Health; FAMILY PHYSICIAN Internal Medicine Geriatric Medicine | DX: R79.89 Other specified abnormal findings of blood chemistry (principal) | CPT/HCPCS: 93306 ==

== ENCOUNTER → 2025-06-02 14:16 | Outpatient (REF) | payer MEDICARE, SELFPAY ==
[2025-06-02 15:52] LABS: Calcium 9.8 mg/dl (8.4-10.2)
[2025-06-02 16:09] LABS: Vitamin D, 25-OH*** 44.4 ng/mL (30-80)
== END ==
LOC: RAD 14:16
PROVIDERS: ATTENDING PHYSICIAN Internal Medicine Rheumatology; FAMILY PHYSICIAN Internal Medicine Geriatric Medicine
DX: M81.0 Age-related osteoporosis without current pathological fracture (principal); M15.9 Polyosteoarthritis, unspecified
CPT/HCPCS: 36415; 77080; 82306; 82784; 83516; 83970; 84155; 84165; 86231

== ENCOUNTER → 2025-08-09 14:26 | Outpatient (REF) | payer MEDICARE, SELFPAY ==
[2025-08-09 16:37] LABS: ALT (SGPT) 16 U/L (0-35); AST (SGOT) 21 U/L (14-36); Albumin 4.2 g/dl (3.5-5.0); Alkaline Phosphatase 84 U/L (38-126); Blood Urea Nitrogen 10 mg/dl (7-17); C-Reactive Protein < 5.00 mg/L (0.0-10.00); Calcium 9.6 mg/dl (8.4-10.2); Carbon Dioxide 29 mmol/L (22-30); Chloride 103 mmol/L (98-107); Glucose 85 mg/dl (70-99); Potassium 4.0 mmol/L (3.5-5.1); Sodium 139 mmol/L (135-145); Total Protein 6.9 g/dl (6.3-8.2); eGFR > 60.00
== END ==
LOC: REG 14:26
PROVIDERS: ATTENDING PHYSICIAN Ophthalmology; FAMILY PHYSICIAN Internal Medicine Geriatric Medicine
DX: H47.212 Primary optic atrophy, left eye (principal); Z01.818 Encounter for other preprocedural examination
CPT/HCPCS: 36415; 80053; 85652; 86140

== ENCOUNTER → 2025-08-12 16:15 | Outpatient (REF) | payer MEDICARE, SELFPAY | LOC: RAD 16:15 | PROVIDERS: ATTENDING PHYSICIAN Ophthalmology; FAMILY PHYSICIAN Internal Medicine Geriatric Medicine | DX: H47.212 Primary optic atrophy, left eye (principal) | CPT/HCPCS: 70482; Q9967 ==